=== PATIENT | female | born 1965 | race Caucasian/White ===

== ENCOUNTER → 2016-03-08 | Outpatient (CLI) | payer BC ==
[~2016-03-08] MED LIST: CALC117719 PO; MULT-35 PO
--- NOTE | 2016-03-08 13:24 | Diagnostic Imaging Report ---
INDICATION: Chronic neck pain. TECHNIQUE: Three views of the cervical spine. FINDINGS: There is trace (1-2 mm) anterolisthesis of C4 on C5. Otherwise, the cervical spine is normal in alignment. No fracture. Multilevel degenerative disc disease is present from C4-C5 through C7-T1. Mild facet hypertrophy is also present near C5-C6. No prevertebral soft tissue swelling. IMPRESSION: Mild cervical spondylosis from C5-C6 through C7-T1. Dictated by: Dictated on workstation # [id number]
== END ==
LOC: RAD 10:43
PROVIDERS: ATTEND Chiropractor
DX: M54.2 Cervicalgia (principal); M47.892 Other spondylosis, cervical region
CPT/HCPCS: 72040